=== PATIENT | male | born 1995 | race Caucasian/White ===

== ENCOUNTER 2019-07-21 15:42 | Emergency (ER) | payer SELFPAY ==
[~2019-07-21] VITALS: Ht 177.8 cm; Wt 100.0 kg
[2019-07-21 15:42] VITALS: BP 142/93
== END 2019-07-21 16:45 | disposition left against medical advice (07) ==
LOC: EMS 15:42
DX: N48.89 Other specified disorders of penis (principal); Z53.21 Procedure and treatment not carried out due to patient leaving prior to being seen by health care provider

== ENCOUNTER 2019-07-22 07:09 | Emergency (ER) | payer SELFPAY ==
[~2019-07-22] VITALS: Ht 177.8 cm; Wt 100.0 kg
[2019-07-22 08:50] LABS: APPEARANCE,URINE CLEAR (CLEAR); BILIRUBIN,URINE NEGATIVE (NEGATIVE); GLUCOSE, URINE (UA) NEGATIVE (NEGATIVE); KETONES,URINE NEGATIVE (NEGATIVE); LEUKOCYTE ESTERASE ,URINE NEGATIVE (NEGATIVE); NITRATE,URINE NEGATIVE (NEGATIVE); OCCULT BLOOD,URINE NEGATIVE (NEGATIVE); PH,URINE 6.5 (5.0-8.0); PROTEIN,URINE NEGATIVE (NEGATIVE); UROBILINOGEN,URINE 0.2 mg/dL (<=1.0)
[2019-07-22 09:00] VITALS: BP 124/105
== END 2019-07-22 09:24 | disposition home or self-care (01) ==
LOC: EMS 07:10
DX: S30.812A Abrasion of penis, initial encounter (principal); X58.XXXA Exposure to other specified factors, initial encounter; Y93.89 Activity, other specified; Y92.89 Other specified places as the place of occurrence of the external cause; Y99.8 Other external cause status